=== PATIENT | female | born 1950 | race Caucasian/White ===

== ENCOUNTER 2017-04-09 09:08 | Outpatient (CLI) | payer OTHER ==
[2016-07-01 19:30] VITALS: BP 155/82
[2017-04-09 09:32] LABS: BASOPHILS % 0.4 (0.0-1.5); EOSINOPHILS % 1.5 % (0.0-6.8); MEAN CORPUSCULAR HEMOGLOBIN 29.4 pg (28.0-34.0); MEAN CORPUSCULAR VOLUME 87.3 fl (80.0-100.0); MONOCYTES % 5.1 % (0.0-11.0); NEUTROPHILS # 4.6 # k/uL (1.4-7.7)
[2017-04-09 09:56] LABS: eGFR (African) > 60; eGFR (Non-African) > 60
== END 2017-04-09 09:10 ==
LOC: LAB 09:08
PROVIDERS: ATTEND Nurse Practitioner Family
DX: E78.2 Mixed hyperlipidemia (principal); E55.9 Vitamin D deficiency, unspecified; I10 Essential (primary) hypertension
CPT/HCPCS: 36415; 80053; 80061; 82306; 85025

== ENCOUNTER 2017-04-16 12:59 | Outpatient (CLI) | payer OTHER ==
[2016-07-01 19:30] VITALS: BP 155/82
== END 2017-04-16 13:00 ==
LOC: CARD 12:59
PROVIDERS: ATTEND Internal Medicine Cardiovascular Disease
DX: Z95.4 Presence of other heart-valve replacement (principal); I10 Essential (primary) hypertension
CPT/HCPCS: G0463

== ENCOUNTER 2017-05-14 13:09 | Outpatient (CLI) | payer OTHER ==
[2016-07-01 19:30] VITALS: BP 155/82
== END 2017-05-14 13:14 | disposition home or self-care (01) ==
LOC: POD 13:09
PROVIDERS: ATTEND Podiatrist
DX: L60.0 Ingrowing nail (principal); M79.675 Pain in left toe(s); M79.674 Pain in right toe(s)
CPT/HCPCS: G0463

== ENCOUNTER 2017-07-23 09:09 | Outpatient (CLI) | payer OTHER ==
[2016-07-01 19:30] VITALS: BP 155/82
[~2017-07-23 09:09] MED LIST: DENOSUMAB 60 MG/ML ML SQ ONE
[2017-07-23] MEDS ORDERED: DENOSUMAB 60 MG/ML ML SQ SCH (10:00)
== END 2017-07-23 09:10 ==
LOC: INF 09:09
PROVIDERS: ATTEND Nurse Practitioner Family
DX: M81.0 Age-related osteoporosis without current pathological fracture (principal)
CPT/HCPCS: 96372; J0897

== ENCOUNTER 2017-12-14 14:19 | Emergency (ER) | payer OTHER ==
--- NOTE | 2017-12-14 15:35 | ED Physician Documentation ---
Upper Respiratory Symptoms - HISTORIAN Historian: patient - HPI Stated Complaint: Cough/Congestion/CHRISTENSEN/N/V Chief Complaint: Cough/ Upper Respiratory Additional Information: fever chills cough ache all over dirrhea nausea Onset: days ago (3) Duration: intermittent episodes Context: denies: recent foreign travel, insect bite(s) Severity: moderate Associated Symptoms: fever, chills, sweating, sore throat, headache Further Comments: yes (pos flu a) - ROS CONST/EYES: denies: weakness, eye redness, eye itching CVS/RESP: none. denies: shortness of breath LYMPH: denies: leg swelling, rash, swollen glands GI/: none MS/SKIN: joint pain, muscle aches - PAST HX Lung Disease: none, other (osteoporosis) Surgeries/Procedures: other (aortic valve repl brain aneurysm) Allergies/Adverse Reactions: Allergies Allergy/AdvReac Type Severity Reaction Status Date / Time No Known Drug Allergies Allergy Verified 04/08/16 18:03 Home Medications: Ambulatory Orders Medication Instructions Recorded Eszopiclone [Lunesta] 3 mg PO HS PRN u2 10/05/13 Aspirin [Adult Low Dose Aspirin EC] 162 mg PO DAILY 04/08/16 - SOCIAL HX Smoking History: non-smoker Alcohol Use: none Drug Use: none - FAMILY HX Family History: no significant history - VITAL SIGNS Vital Signs: Vital Signs Temp Pulse Resp BP Pulse Ox 99.8 F H 90 20 120/61 98 12/14/17 14:20 12/14/17 14:20 12/14/17 14:20 12/14/17 14:20 12/14/17 14:20 - REVIEWED ASSESSMENTS Nursing Assessment Reviewed: Yes Vitals Reviewed: Yes ED Results Lab/Radiology - Orders Orders: ED Orders Category Date Time Status INFLUENZA A&B Stat Lab 12/14/17 14:26 Ordered Upper Respiratory Symptoms - EXAM General Appearance: moderate distress EENT: eyes nml inspection Neck: normal inspection, supple. No: carotid bruit Respiratory: no resp. distress, breath sounds nml Abdomen: non-tender, nml bowel sounds, no distention Skin: color nml, no rash, warm,dry. No: cyanosis, diaphoresis, pallor Extremities: non-tender, normal range of motion, no edema Neuro/Psych: oriented x3, mood/affect nml Discharge Clincal Impression: influenza a, osteoporosis Referrals: Claribel Miller PRN [Primary Care Provider] - 2 Days Comments: home counsil on activities Condition: Good Disposition: 01 HOME, SELF-CARE Decision to Admit: NO Decision Time: 15:38
[2017-12-14 15:43] VITALS: BP 138/76
== END 2017-12-14 15:42 | disposition home or self-care (01) ==
LOC: ED 14:19
DX: J09.X2 Influenza due to identified novel influenza A virus with other respiratory manifestations (principal); M81.0 Age-related osteoporosis without current pathological fracture
CPT/HCPCS: 87400; 99282

== ENCOUNTER 2017-12-17 16:46 | Emergency (ER) | payer OTHER ==
--- NOTE | 2017-12-17 17:08 | ED Physician Documentation ---
Upper Respiratory Symptoms - HISTORIAN Historian: patient - HPI Chief Complaint: General Adult Additional Information: Patient states that she was diagnosed with Influenza A on Saturday. Has continues to have cough having coughing fits, mild productive, not sure what phlegm looks like. Has had fever (not sure how high) and chills. Has been nauseated some, occasional dry emisis. Has had some mild diarrhea. - ROS CONST/EYES: denies: weakness - PAST HX Lung Disease: none, other (osteoporosis) Surgeries/Procedures: other (aortic valve replacement, clipping of cerebral aneurysm) Allergies/Adverse Reactions: Allergies Allergy/AdvReac Type Severity Reaction Status Date / Time No Known Drug Allergies Allergy Verified 04/08/16 18:03 Home Medications: Ambulatory Orders Medication Instructions Recorded Eszopiclone [Lunesta] 3 mg PO HS PRN u2 10/05/13 - SOCIAL HX Smoking History: non-smoker Alcohol Use: none Drug Use: none - FAMILY HX Family History: no significant history - VITAL SIGNS Vital Signs: Vital Signs Temp Pulse Resp BP Pulse Ox 97.6 F 81 19 157/74 97 12/17/17 19:20 12/17/17 19:20 12/17/17 19:20 12/17/17 19:20 12/17/17 16:50 - REVIEWED ASSESSMENTS Nursing Assessment Reviewed: Yes Vitals Reviewed: Yes ED Results Lab/Radiology - Lab Results Lab Results: Lab Results 12/17/17 12/17/17 17:25 17:25 WBC 3.70 K/ul L K/ul (4.00-12.00) RBC 4.28 M/ul M/ul (3.90-5.20) Hgb 12.7 g/dL g/dL (12.0-16.0) Hct 36.2 % % (34.5-46.5) MCV 84.7 fl fl (80.0-100.0) MCH 29.6 pg pg (28.0-34.0) MCHC 35.0 g/dL g/dL (30.0-36.0) RDW 12.8 % % (11.3-14.3) Plt Count 131 K/mm3 K/mm3 (130-400) Neut % (Auto) 58.7 % % (39.0-79.0) Lymph % (Auto) 27.9 % % (16.0-50.0) [place] % (Auto) 6.7 % % (0.0-11.0) Eos % (Auto) 0.5 % % (0.0-6.8) Baso % (Auto) 2.3 H (0.0-1.5) Neut # (Auto) 2.2 # k/uL # k/uL (1.4-7.7) Lymph # (Auto) 1.0 # k/uL # k/uL (0.6-4.0) [place] # (Auto) 0.2 # k/uL # k/uL (0.0-0.9) Eos # (Auto) 0.0 # k/uL # k/uL (0.0-0.6) Baso # (Auto) 0.1 # k/uL # k/uL (0.0-0.5) Reactive Lymphs % 3.9 % % (0.0-5.0) Reactive Lymphs # 0.2 # k/uL # k/uL (0.0-0.8) Sodium 136 mmol/L mmol/L (136-145) Potassium 3.5 mmol/L mmol/L (3.5-5.1) Chloride 97 mmol/L L mmol/L (98-107) Carbon Dioxide 27 mmol/L mmol/L (22-30) BUN 11 mg/dL mg/dL (7-17) Creatinine 0.80 mg/dL mg/dL (0.52-1.04) Estimated Creat Clear 82 Est GFR ( Amer) > 60 (60 - ) Est GFR (Non-Af Amer) > 60 (60 - ) Glucose 92 mg/dL mg/dL (74-106) Calcium 9.3 mg/dL mg/dL (8.4-10.2) Total Bilirubin 0.4 mg/dL mg/dL (0.2-1.3) AST 60 U/L H U/L (15-46) ALT 41 U/L U/L (13-69) Alkaline Phosphatase 32 U/L L U/L (38-126) Total Protein 6.9 g/dL g/dL (6.3-8.2) Albumin 3.9 g/dL g/dL (3.5-5.0) - Radiology Radiology Impressions: Examination: PA and lateral chest. History: Evaluate lung koenig. Comparison exam: None provided Findings: PA lateral chest demonstrate a normal cardiac and mediastinal silhouette. Sternotomy wires. Vascular calcification by the aortic arch. No focal infiltrate. Blunting of the posterior sulci. Osseous structures are appropriate for age. Impression: Posterior effusions. No apical infiltrate. - Orders Orders: ED Orders Category Date Time Status CHEST P.A.&LAT 2 VIEWS [RAD] Routine Exams 12/17/17 Completed CBC/PLATELET/DIFF Routine Lab 12/17/17 17:25 Completed CMP Routine Lab 12/17/17 17:25 Completed 0.9 % Sodium Chloride [Normal Saline] 1,000 ml Med 12/17/17 17:30 Discontinued IV .Q1H Upper Respiratory Symptoms - EXAM General Appearance: alert, mild distress EENT: eyes nml inspection, nml ENT inspection, pharynx nml Neck: normal inspection, supple. No: lymphadenopathy Respiratory: no resp. distress, breath sounds nml, no pain on inspiration, speaks full sentences. No: wheezes, rales, rhonchi Skin: color nml, no rash, warm,dry Extremities: non-tender, normal range of motion Neuro/Psych: oriented x3, mood/affect nml Discharge Clincal Impression: Influenza Referrals: Claribel Miller, PRN [Primary Care Provider] - 2 Days Additional Instructions: Drink a lot of fluids, take Cheritussin AC as needed for cough. Avoid aspirin. Watch for any sign of further lung infection symptoms. Take Zofran Condition: Stable Disposition: HOME, SELF-CARE Decision to Admit: NO Date of Decison to Admit: 12/17/17 Decision Time: 18:57
[2017-12-17 17:30] LABS: BASOPHILS % 2.3 (0.0-1.5); EOSINOPHILS % 0.5 % (0.0-6.8); MEAN CORPUSCULAR HEMOGLOBIN 29.6 pg (28.0-34.0); MEAN CORPUSCULAR VOLUME 84.7 fl (80.0-100.0); MONOCYTES % 6.7 % (0.0-11.0); NEUTROPHILS # 2.2 # k/uL (1.4-7.7)
[2017-12-17 17:42] LABS: eGFR (African) > 60; eGFR (Non-African) > 60
[2017-12-17] MEDS: 0.9 % SODIUM CHLORIDE 1,000 ML IV SCH (17:48)
--- NOTE | 2017-12-17 18:12 | Diagnostic Imaging Report ---
[facility] [address] [facility].[address] 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 History: Evaluate lung koenig. Comparison exam: None provided Findings: PA lateral chest demonstrate a normal cardiac and mediastinal silhouette. Sternotomy wires. Vascular calcification by the aortic arch. No focal infiltrate. Blunting of the posterior sulci. Osseous structures are appropriate for age. Impression: Posterior effusions. No apical infiltrate. Electronically signed on Dec 17, 2017 5:47:24 PM MIXER LEVER OPERATOR by: Jhon GARCIA
[2017-12-17 19:47] VITALS: BP 157/74
== END 2017-12-17 19:20 | disposition home or self-care (01) ==
LOC: ED 16:46
DX: J11.89 Influenza due to unidentified influenza virus with other manifestations (principal)
CPT/HCPCS: 71020; 80053; 85025; J7030; 71046; 96365; 99282; 99283; S1016

== ENCOUNTER 2018-01-24 14:06 | Outpatient (CLI) | payer OTHER ==
[2018-01-24] MEDS ORDERED: DENOSUMAB 60 MG/ML ML SQ SCH (15:00)
== END 2018-01-24 14:07 ==
LOC: INF 14:06
PROVIDERS: ATTEND Nurse Practitioner Family
DX: M81.0 Age-related osteoporosis without current pathological fracture (principal)
CPT/HCPCS: 96372; J0897

== ENCOUNTER 2018-08-01 12:46 | Outpatient (CLI) | payer OTHER ==
[~2018-08-01 12:46] MED LIST changes: -DENOSUMAB 60 MG/ML ML SQ ONE; +DENOSUMAB 60 MG/ML SYRINGE SQ ONE
[2018-08-01] MEDS ORDERED: DENOSUMAB 60 MG/ML SYRINGE SQ ONE (13:00)
== END 2018-08-01 13:00 ==
LOC: INF 12:46
PROVIDERS: ATTEND Nurse Practitioner Family
DX: M81.0 Age-related osteoporosis without current pathological fracture (principal)
CPT/HCPCS: 96372; J0897

== ENCOUNTER 2018-08-03 13:21 | Emergency (ER) | payer OTHER ==
[2018-08-03 13:48] VITALS: BP 154/88
--- NOTE | 2018-08-03 13:52 | ED Physician Documentation ---
Ear Complaints - HISTORIAN Historian: patient - HPI Stated Complaint: Right ear pain Chief Complaint: Ear Complaints Additional Information: Ear fungus/canal infection/ discomfort for a year. Pain worse since last night in right ear. Feels like right ear is closing up and she can't hear as well. Has unknown gtts and cream she uses on her ears as well as q tips. Doesn't take prescribed meds because "they don't work." No other modifying factors or associated events. - ROS CONST: denies: recent illness - PAST HX Allergies/Adverse Reactions: Allergies Allergy/AdvReac Type Severity Reaction Status Date / Time No Known Drug Allergies Allergy Verified 08/03/18 13:40 Home Medications: Ambulatory Orders Medication Instructions Recorded Eszopiclone [Lunesta] 3 mg PO HS PRN u2 10/05/13 - SOCIAL HX Smoking History: quit greater than 1 year - FAMILY HX Family History: No - VITAL SIGNS Vital Signs: Vital Signs Temp Pulse Resp BP Pulse Ox 97.7 F 74 18 154/88 99 08/03/18 13:42 08/03/18 13:42 08/03/18 13:42 08/03/18 13:42 08/03/18 13:42 - REVIEWED ASSESSMENTS Nursing Assessment Reviewed: Yes Vitals Reviewed: Yes Progress - Progress Progress: sent with paper script for neomycin polymycin HC otic gtts. 2 gtts AD qid x 7 days. Ear Complaint Physical Exam - EXAM General Appearance: no acute distress, alert Ear: auricle nml, other (left canal with flaking skin. R canal swollen with minimal eruthema, unable to visualize TM 2/2 swelling) Mouth/Throat: lips nml Nose: nml inspection Neuro/Psych: No: motor/sensory loss Discharge Clincal Impression: Otitis externa Qualifiers: Otitis externa type: unspecified type Chronicity: chronic Laterality: right Qualified Code(s): H60.61 - Unspecified chronic otitis externa, right ear Referrals: Claribel Miller PRN [Primary Care Provider] - 2 Days Condition: Good Decision to Admit: NO Decision Time: 13:49
== END 2018-08-03 13:51 ==
LOC: ED 13:21
DX: H60.61 Unspecified chronic otitis externa, right ear (principal)

== ENCOUNTER 2019-01-30 12:59 | Outpatient (CLI) | payer OTHER ==
[2019-01-30] MEDS ORDERED: DENOSUMAB (NF) 60 MG/ML SYRINGE SQ ONE (14:00)
== END 2019-01-30 13:02 ==
LOC: INF 12:59
PROVIDERS: ATTEND Nurse Practitioner Family
DX: M81.0 Age-related osteoporosis without current pathological fracture (principal)
CPT/HCPCS: 96372; J0897

== ENCOUNTER 2019-02-24 10:02 | Outpatient (CLI) | payer OTHER ==
--- NOTE | 2019-02-24 11:33 | Diagnostic Imaging Report ---
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 [address] Report Submission Date: Feb 24, 2019 11:27:39 AM CDT Patient Study Name: CROW RUBI Date: Feb 24, 2019 12:00:00 AM CDT Modality Type: DEXA\OT Gender: F Description: DEXA : 54 Institution: [facility] Physician: GLORIA SIMMS) - OP Examination: Bone density History: Assess bone mineralization Comparison exams: None available Technique: DEXA protocol Findings: Average bone mineral density from L1 through L4: 0.940 grams cm2. T score: -2.0 Average bone mineral density of the left femoral neck: 0.754 grams cm2. T score: -2.0 Average bone mineral density of the right femoral neck: 0.705 grams cm2. T score: -2.4 Impression: Lumbar spine and bilateral hip osteopenia. Electronically signed on Feb 24, 2019 11:27:39 AM CDT by: Jhon GARCIA
== END 2019-02-24 10:03 ==
LOC: RAD 10:02
PROVIDERS: ATTEND Nurse Practitioner Family
DX: Z78.0 Asymptomatic menopausal state (principal); M85.88 Other specified disorders of bone density and structure, other site; M85.852 Other specified disorders of bone density and structure, left thigh; M85.851 Other specified disorders of bone density and structure, right thigh
CPT/HCPCS: 77080

== ENCOUNTER 2019-08-07 12:53 | Outpatient (CLI) | payer OTHER ==
[~2019-08-07 12:53] MED LIST changes: +DENOSUMAB (NF) 60 MG/ML SYRINGE SQ ONE; -DENOSUMAB 60 MG/ML SYRINGE SQ ONE
== END 2019-08-07 13:20 | disposition home or self-care (01) ==
LOC: INF 12:53
PROVIDERS: ATTEND Nurse Practitioner Family
DX: M81.0 Age-related osteoporosis without current pathological fracture (principal)
CPT/HCPCS: J0897